=== PATIENT | female | born 1965 | race Caucasian/White ===

== ENCOUNTER 2022-03-15 09:55 | Outpatient (CLI) | payer BC, SELFPAY ==
[2022-03-15 14:02] LABS: Albumin* 4.5 g/dL (3.3-5.0); Chloride* 108 mmol/L (96-114); Potassium* 4.6 mmol/L (3.6-5.1); Sodium* 141 mmol/L (135-149)
[2022-03-15 14:04] LABS: Bilirubin Total* 0.4 mg/dL (0.1-1.5); Creatinine* 0.7 mg/dL (0.5-1.5); Estimated Glomerular Filt Rate 101 ml/min
[2022-03-15 14:05] LABS: Alanine Aminotransferase* 18 U/L (4-35); Alkaline Phosphatase* 95 U/L (40-150); Aspartate Amino Transferase* 22 U/L (12-35); Blood Urea Nitrogen* 12 mg/dL (7-30); Carbon Dioxide* 27 mmol/L (20-32); Glucose* 106 mg/dL (60-115); Total Protein* 7.4 g/dL (6.0-8.3)
[2022-03-15 14:06] LABS: Calcium* 9.7 mg/dL (8.4-10.6)
== END 2022-03-15 09:56 | disposition home or self-care (01) ==
PROVIDERS: PCP Physician Assistant Medical; Visit Provider Physician Assistant Medical
DX: M25.562 Pain in left knee (principal); J30.2 Other seasonal allergic rhinitis; F41.9 Anxiety disorder, unspecified; T14.8XXA Other injury of unspecified body region, initial encounter
CPT/HCPCS: 80053; 84443

== ENCOUNTER 2022-04-06 15:18 | Outpatient (CLI) | payer BC, SELFPAY ==
--- NOTE | 2022-04-06 15:30 | MR_ITS ---
[address] [address] Phone:?[phone] Fax:?[phone] Referring Physician Information: Deon Shah M.D. [id number] [facility] [address] Phone:?[phone] Fax:?[phone] Patient:Nicholas Garcia D.O.B:?1965 Sex:?Female Phone:?[phone] [facility] MRN:?[id number] Exam Date:?04/06/2022 ? EXAM: MRI of the LEFT KNEE, without contrast CLINICAL HISTORY: Left knee pain. Evaluate for internal derangement. COMPARISONS: None available. TECHNICAL: MR sequences of the left knee: sagittals: PD, PDFS coronals: PD, T2FS axials: PD, PDFS CONTRAST: None SEDATION: None FINDINGS: Bones: No fracture, bone marrow contusion, or other suspicious bone marrow signal abnormality. 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 Retinacula: The medial and lateral retinacula are intact. Fat pads: The infrapatellar, quadriceps, and prefemoral fat pads are unremarkable. Knee joint: Effusion: Physiologic amount of joint fluid. Popliteal cyst: None. Intra-articular bodies: None. Medial compartment: Medial meniscus: Intact. Cartilage: Approximately 1.2 cm in AP dimension by 0.7 cm in transverse dimension area of full-thickness chondral loss over the weight-bearing portion of the medial femoral condyle with subjacent subchondral cystic changes best seen on sagittal series 6 image 12 and coronal series 7 image 19. Lateral compartment: Lateral meniscus: Intact. Cartilage: Approximately 1.5 x 1.5 cm area of full-thickness chondral loss over the posterior portion of the lateral tibial plateau with associated degenerative subchondral cystic changes. Ligaments: Anterior cruciate ligament: Intact. Posterior cruciate ligament: Intact. Medial collateral ligament: Intact. Posterior oblique ligament: Intact. Fibular collateral ligament: Intact. Posterolateral corner: The distal biceps femoris tendon, iliotibial band, popliteus tendon, popliteus muscle, popliteofibular ligament, and arcuate ligament are intact. Posteromedial corner: The semimembranosus and pes anserine tendons are intact. Extensor mechanism: Patellar tendon: Intact. Quadriceps tendon: Intact, without tendinopathy. IMPRESSION: 1. Approximately 1.5 x 1.5 cm area of full-thickness chondral loss over the posterior portion of the lateral tibial plateau with associated degenerative subchondral cystic changes. 2. Approximately 1.2 x 0.7 cm area of full-thickness chondral loss over the weight-bearing portion of the medial femoral condyle with subjacent subchondral cystic changes. 3. 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 4. No ligamentous, tendinous, or meniscal pathology of the left knee. RCB Electronically signed on 04/09/2022 8:07:00 AM by Malcolm Ashraf M.D.
== END 2022-04-06 15:19 | disposition home or self-care (01) ==
LOC: MRI 15:18
PROVIDERS: PCP Physician Assistant Medical; Visit Provider Orthopaedic Surgery Sports Medicine
DX: M25.562 Pain in left knee (principal); M22.42 Chondromalacia patellae, left knee; M23.92 Unspecified internal derangement of left knee
CPT/HCPCS: 73721

== ENCOUNTER 2022-05-25 10:27 | Outpatient (CLI) | payer BC, SELFPAY ==
[2022-05-25 15:10] LABS: Chloride* 102 mmol/L (96-114); Sodium* 140 mmol/L (135-149)
[2022-05-25 15:11] LABS: Potassium* 4.3 mmol/L (3.6-5.1)
[2022-05-25 15:12] LABS: Mean Corpuscular HGB Conc 33 gm/dL (32-36); Mean Corpuscular Hemoglobin 31 pg (26-34); Mean Corpuscular Volume 94 fL (80-100); Platelet Count* 385 K/uL (140-440); Red Blood Count 4.91 m/uL (4.00-5.20); White Blood Count* 7.95 K/uL (4.50-11.00)
[2022-05-25 15:13] LABS: Blood Urea Nitrogen* 17 mg/dL (7-30); Carbon Dioxide* 26 mmol/L (20-32); Creatinine* 0.8 mg/dL (0.5-1.5); Estimated Glomerular Filt Rate 86 ml/min
[2022-05-25 15:14] LABS: Calcium* 10.4 mg/dL (8.4-10.6); Glucose* 98 mg/dL (60-115)
[2022-05-25 15:24] LABS: Slide Review Reflex No
[2022-05-25 15:49] LABS: SARS PCR* Negative SARS-CoV-2 (Negative)
== END 2022-05-25 10:28 | disposition home or self-care (01) ==
PROVIDERS: PCP Physician Assistant Medical; Visit Provider Nurse Practitioner Family
DX: Z01.818 Encounter for other preprocedural examination (principal); Z20.822 Contact with and (suspected) exposure to COVID-19
CPT/HCPCS: 36415; 80048; 85027; 87635

== ENCOUNTER 2022-09-12 13:22 | Outpatient (CLI) | payer BC, SELFPAY ==
[2022-09-12 21:25] LABS: Chloride* 107 mmol/L (96-114); Potassium* 4.7 mmol/L (3.6-5.1); Sodium* 140 mmol/L (135-149)
[2022-09-12 21:28] LABS: Blood Urea Nitrogen* 18 mg/dL (7-30); Calcium* 9.3 mg/dL (8.4-10.6); Carbon Dioxide* 28 mmol/L (20-32); Creatinine* 0.8 mg/dL (0.5-1.5); Estimated Glomerular Filt Rate 85 ml/min; Glucose* 116 mg/dL (60-115)
== END 2022-09-12 13:23 | disposition home or self-care (01) ==
LOC: FRMREF 13:23
PROVIDERS: PCP Physician Assistant Medical; Visit Provider Physician Assistant Medical
DX: Z01.818 Encounter for other preprocedural examination (principal)
CPT/HCPCS: 80048

== ENCOUNTER 2023-03-25 14:09 | Outpatient (CLI) | payer BC, SELFPAY | END 2023-03-25 14:10 | disposition home or self-care (01) | PROVIDERS: PCP Physician Assistant Medical; Visit Provider Physician Assistant Medical | DX: G62.9 Polyneuropathy, unspecified (principal); M79.674 Pain in right toe(s) | CPT/HCPCS: 82607; 82747; 84425; 84550 ==

== ENCOUNTER 2023-07-15 16:15 | Outpatient (RCR) | payer BC, SELFPAY | END 2023-07-15 17:19 | disposition home or self-care (01) | PROVIDERS: PCP Physician Assistant Medical; Visit Provider Physician Assistant Medical | DX: M25.552 Pain in left hip (principal); Z51.89 Encounter for other specified aftercare | CPT/HCPCS: 97012; 97110; 97140; 97162 ==